=== PATIENT | female | born 1975 | race Caucasian/White ===

== ENCOUNTER → 2021-01-11 | Outpatient (CLI) | payer OTHER, SELFPAY ==
--- NOTE | 2021-01-11 | FLU_PTH ---
PATIENT: BHARGAV WOLF LOC: [facility] U#:[id number] AGE/SX: 45/F ROOM: RE01/11/[address]: Dr. Simi Farrar MD : 1975 BED: DIS: 01/11/2021 SPEC #: [id number] RECD: 01/11/21 13:33 STATUS: GOLDEN RETaty #: [id number] CHRISS: 01/11/21 00:[address]: Simi Farrar DEPT: CYTOLOGY RECD BY: Jhoan Jane ENTERED: 01/11/21 13:33 SP TYPE: Fluid OTHR DR: MD Misti Walker, [employer]-C Tissues: Cheek, NOS Procedures: Special Stain Group II Surgery Specimen Level IV Cytospin Fluid HEADER OPERATION: Fine needle aspiration right cheek PRE-OP DIAGNOSIS: Soft tissue mass right cheek TISSUE SUBMITTED: A - FNA, soft tissue mass right cheek fluid, B - FNA, soft tissue mass right cheek x8 slides DIAGNOSIS CYTOLOGY A. Right cheek soft tissue mass fluid, FNA (cytospin and cell block): Consistent with pleomorphic adenoma. B. Right cheek soft tissue mass, FNA (smears): Consistent with pleomorphic adenoma. See comment. SJ:dorina 01/12/2021 COMMENT A & B. Normal salivary gland acini are also noted. Correlation with clinical, radiologic findings and appropriate follow up are necessary. Case has been reviewed in consultation with Dr. Spring who concurs with the above diagnosis. IDC:AM CYTOLOGY STUDY Slides are reviewed. CYTOLOGY GROSS A - Received is 30 ml of brown cloudy fluid labeled with the patient's name and and designated per the requisition as right cheek. Submitted for cytology preparation including cell block. B - Received are eight smears labeled with the patient's name and designated per the requisition as right cheek. Submitted for staining. / dorina 01/11/2021 TC:1 CPT: 25744, 84835, 53444
== END | disposition home or self-care (01) ==
LOC: LABSPEC 13:27
PROVIDERS: PCP Internal Medicine; Referring Provider Surgery; Visit Provider Surgery
DX: R22.0 Localized swelling, mass and lump, head (principal)
CPT/HCPCS: 88108; 88305; 88313